=== PATIENT | male | born 1960 | race Hispanic/Latino ===

== ENCOUNTER 2018-01-07 21:28 | Emergency (ER) | payer OTHER ==
[~2018-01-07 21:28] MED LIST: CAPT50TA3 PO; CEFU500T67 PO; ETOMIDATE 2 MG/ML 10 ML VIAL IVP ONE; GLYB-228 PO; LACT1CAP58 PO; ROCURONIUM BROMIDE 10MG/1ML 5ML VL IV ONE; SUCCINYLCHOLINE CHLORIDE 20 MG/ML 10 ML VIAL IVP ONE; TYL3 PO
[2018-01-07 21:45] LABS: BASOPHILS % (AUTO) 0.2 % (0.0-5.0); HEMATOCRIT 36.3 % (42-54); MEAN CORPUSCULAR HEMOGLOBIN 29.3 pg (27.0-33.0); MEAN CORPUSCULAR HGB CONC 34.9 g/dL (32.0-36.0); MEAN CORPUSCULAR VOLUME 83.8 fL (79-99); MONOCYTES % (AUTO) 6.1 % (3.0-13.0); NEUTROPHILS % (AUTO) 70.7 % (40.0-77.0); PLATELET COUNT (AUTO) 239 K/uL (130-400); RED BLOOD CELL COUNT(AUTO) 4.34 MIL/uL (4.50-6.20); RED CELL DISTRIBUTION WIDTH 15.3 % (11.0-15.5); WHITE BLOOD COUNT (AUTO) 10.9 K/uL (4.8-10.8)
[2018-01-07] MEDS ORDERED: ONDANSETRON HCL MDV 20ML 2 MG/ML VIAL ONE (21:46)
[2018-01-07 21:56] LABS: CREATININE 1.2 mg/dL (0.5-1.5); INR 0.93 (0.85-1.15); PARTIAL THROMBOPLASTIN TIME 22.8 SEC (26.3-35.5); POTASSIUM 4.4 mmol/L (3.5-5.1); PROTHROMBIN TIME 9.8 SEC (9.6-11.6)
[2018-01-07] MEDS ORDERED: SODIUM CHLORIDE 0.9% 1000ML 1,000 ML IV ONE (21:56)
[2018-01-07] MEDS ORDERED: HYDRALAZINE HCL 20 MG/ML VIAL ONE (21:56)
[2018-01-07 22:05] LABS: B-TYPE NATRIURETIC PEPTIDE 8 pg/mL (0-100)
[2018-01-07 22:18] LABS: ALBUMIN 4.1 g/dL (3.5-5.0); BILIRUBIN,TOTAL 0.6 mg/dL (0.2-1.0); TOTAL PROTEIN, SERUM 7.9 g/dL (6.0-8.3)
[2018-01-07] MEDS ORDERED: IOPAMIDOL-370 75 ML VIAL IV ONE (23:04)
== END 2018-01-08 00:17 | disposition short-term general hospital (02) ==
LOC: EDH 21:28
DX: I63.9 Cerebral infarction, unspecified (principal); I10 Essential (primary) hypertension; E11.9 Type 2 diabetes mellitus without complications; Z98.890 Other specified postprocedural states
CPT/HCPCS: 31500; 36415; 70450; 70496; 70498; 71045 ×2; 80053; 82550; 82553; 82948; 83874; 83880; 84484; 85025; 85610; 85730; 93005; 94761; 96361; 96365; 96366; 96374; 96375 ×2; 99291; J0330; J0360; J3490 ×2; J7030; Q9967